=== PATIENT | male | born 2000 | race African-American/Black ===

== ENCOUNTER 2023-06-13 21:42 | Emergency (ER) | payer OTHER ==
[~2023-06-13] VITALS: Ht 190.5 cm; Wt 67.1 kg
[2023-06-13 23:07] LABS: PLATELET COUNT 168 K/uL (142-355)
[2023-06-14 01:25] VITALS: BP 105/53; TEMP 98.2
== END 2023-06-14 01:25 | disposition home or self-care (01) ==
LOC: ED 21:42
PROVIDERS: Family Medicine
DX: E87.6 Hypokalemia (principal); E86.0 Dehydration
CPT/HCPCS: 36415; 80053; 81002; 82948; 85027; 87502; 87635; 87651; 96361; 96365; 99284; U0003